=== PATIENT | female | born 1980 | race Caucasian/White ===

== ENCOUNTER → 2020-05-29 | Outpatient (CLI) | payer BC ==
--- NOTE | 2020-05-29 15:22 | RAD ---
EXAM: Bilateral digital diagnostic mammogram with tomosynthesis; bilateral breast sonogram. HISTORY: 39-year-old female presents for follow-up evaluation of suspected benign cystic and fibrocys tic lesions within both breasts demonstrated on prior sonograms. The patient is due for bilateral nemo mography. TECHNIQUE: Full-field digital craniocaudal and mediolateral oblique 2D and 3D tomosynthesis images of both breasts are obtained for evaluation. Computer aided detection was applied. Sonographic imaging of both breasts targeted to sites of prior findings was also performed. COMPARISON: Sonograms dated 07/30/2019 and 01/26/2019 and mammogram dated 01/12/2019. BREAST PARENCHYMAL DENSITY: Level C - Heterogeneously dense. FINDINGS: There is no new suspicious mass, microcalcification or region of architectural distortion. There is stable areas of nodularity and asymmetry within both breasts, allowing for differences in [place]. There may be slight interval decrease in a dominant nodular density within the lateral aspec t of the left breast at mid depth. Sonographic imaging of the right breast demonstrates an 8 mm cluster of cysts at the 12:00 position a pproximately 3 cm from the nipple. There is adjacent benign-appearing fibrocystic change extending th rough the region measuring approximately 1.9 cm in conglomerate. There are similar-appearing for cyst ic changes or clustered cysts at the 12:00 position 2 cm from the nipple. These correspond with areas of mammographic nodularity. Sonographic imaging of the left breast demonstrates a 6 mm simple appearing cyst at the 3:00 position 4 cm from the nipple. There are benign bilateral axillary lymph nodes. IMPRESSION: 1. Multiple areas of nodularity and asymmetry within both breasts, likely corresponding with cystic a nd fibrous cystic lesions demonstrated sonographically. No convincing new suspicious mammographic or sonographic lesion is seen. 2. BI-RADS Category 2: Benign finding(s). RECOMMENDATION: Annual mammography is recommended. If your mammogram demonstrates that you have dense breast tissue, which could hide abnormalities, and if you have other risk factors for breast cancer that have been identified, you might benefit from s upplemental screening tests that may be suggested by your ordering physician. Dense breast tissue, i n and of itself, is a relatively common condition. This information is not provided to cause undue c oncern, but rather to raise your awareness and to promote discussion with your physician regarding th e presence of other risk factors, in addition to dense breast tissue. A report of your mammography re sults will be sent to you and your physician. You should contact your physician if you have any ques tions or concerns regarding this report. Mammography is a sensitive method for finding small breast cancers, but it does not detect them all a nd is not a substitute for careful clinical examination. A negative mammogram does not negate a clin ically suspicious finding and should not result in delay in biopsying a clinically suspicious abnorma lity. PQRS compliance statement - Patient information was entered into a reminder system with a target due date for the next mammogram. "Our facility is accredited by the [employer] Mammography [employer]." Electronically signed by: Joann Jones MD (05/29/2020 3:20 PM) [id number]
== END ==
LOC: MAMMO 14:01
PROVIDERS: ATTEND Family Medicine
DX: N60.01 Solitary cyst of right breast (principal); N60.02 Solitary cyst of left breast; N64.89 Other specified disorders of breast
CPT/HCPCS: 76641; 77066; G0279; 77062